=== PATIENT | male | born 1985 | race African-American/Black ===

== ENCOUNTER 2020-08-18 02:51 | Emergency (ER) | payer OTHER ==
[~2020-08-18] VITALS: Ht 185.4 cm; Wt 74.8 kg
--- NOTE | 2020-08-18 03:14 | NUR ---
Patient SEVERO NORMAN RA 89 for medical clearance. Under custody of [facility] in room with patient.
--- NOTE | 2020-08-18 03:15 | NUR ---
MD Zimmerman in room to do MSE.
[2020-08-18] MEDS: PHENAZOPYRIDINE HCL 100 MG TABLET PO ONE (03:19)
--- NOTE | 2020-08-18 03:55 | NUR ---
[facility] standpipe tender at bedside with patient.
[2020-08-18 04:08] VITALS: BP 123/77
--- NOTE | 2020-08-18 04:08 | NUR ---
Patient discharged in [facility] custody in stable condition. Written and verbal after care instructions given. Patient and [facility] verbalizes understanding of instructions. Stressed follow up or return to ER for worsening s/s. Patient ambulates with steady gait, V/S stable, left with all belongings under [facility] custody.
== END 2020-08-18 04:08 ==
LOC: ER 02:55
DX: S31.144A Puncture wound of abdominal wall with foreign body, left lower quadrant without penetration into peritoneal cavity, initial encounter (principal); Y35.833A Legal intervention involving a conducted energy device, suspect injured, initial encounter; Y92.89 Other specified places as the place of occurrence of the external cause
CPT/HCPCS: A4663